=== PATIENT | male | born 1965 | race Two or more races ===

== ENCOUNTER 2018-08-30 09:08 | Inpatient (IN) | payer MEDICAID ==
[~2018-08-30] VITALS: Ht 172.7 cm; Wt 57.8 kg
[2018-08-30] MEDS ORDERED: IV NS 0.9% 1,000 ML BAG IV ONE (09:30)
--- NOTE | 2018-08-30 09:30 | NUR ---
patient presented to the ER, [facility] c/o tachycardia and CP. On room air, breathing evenly and unlabored. Connected to the monitor and pulse ox. kept comfortable, will continue to monitor accordingly.
[2018-08-30 09:34] LABS: BASOPHILS # (AUTO) 0.1 /CMM (0.0-0.2); BASOPHILS % (AUTO) 0.6 % (0.0-2.0); EOSINOPHILS % (AUTO) 0.9 % (0.0-6.0); HEMATOCRIT 33 % (39-51); LYMPHOCYTES # (AUTO) 1.3 /CMM (0.8-4.8); LYMPHOCYTES % (AUTO) 12.8 % (20.0-44.0); MEAN CORPUSCULAR HGB CONC 34 g/dl (31.0-36.0); MEAN CORPUSCULAR VOLUME 90 fL (80-96); MONOCYTES # (AUTO) 0.5 /CMM (0.1-1.30); MONOCYTES % (AUTO) 5.4 % (2.0-12.0); NEUTROPHILS % (AUTO) 80.3 % (43.0-81.0); PLATELET COUNT (AUTO) 470 /CMM (150-450); RED BLOOD CELL COUNT(AUTO) 3.63 MIL/uL (4.5-6.0)
[2018-08-30 09:40] LABS: CALCIUM, SERUM 8.6 mg/dL (8.5-10.1); CREATININE 0.5 mg/dL (0.6-1.3); POTASSIUM 4.3 mmol/L (3.5-5.1)
[2018-08-30 10:02] LABS: ALBUMIN 2.7 g/dL (3.4-5.0); BILIRUBIN,DIRECT 0.2 mg/dL (0.0-0.2); BILIRUBIN,TOTAL 0.8 mg/dL (0.2-1.0); TOTAL PROTEIN, SERUM 7.1 g/dL (6.4-8.2)
[2018-08-30] MEDS ORDERED: CEFTRIAXONE 1 G VIAL ONE (10:25)
[2018-08-30] MEDS ORDERED: CEFTRIAXONE 1GM BAG (ER ONLY) 50 ML IV ONE (10:30)
[2018-08-30] MEDS ORDERED: ENOX60DI SQ (11:05)
[2018-08-30] MEDS ORDERED: POLY17PO4 GT (11:05)
[2018-08-30] MEDS ORDERED: ASCO500T9 GT (11:05)
[2018-08-30] MEDS ORDERED: INSU100V7 SQ (11:05)
[2018-08-30] MEDS ORDERED: MAGN400O6 GT (11:05)
[2018-08-30] MEDS ORDERED: SERT25TA GT (11:05)
[2018-08-30] MEDS ORDERED: ATOR80TA GT (11:05)
[2018-08-30] MEDS ORDERED: INSU100V27 SQ (11:05)
[2018-08-30] MEDS ORDERED: CHLO118L4 MM (11:05)
[2018-08-30] MEDS ORDERED: ACET325T53 GT (11:05)
[2018-08-30] MEDS ORDERED: BLOO-668 IN (11:05)
[2018-08-30] MEDS ORDERED: ONDA4TAB5 GT (11:05)
[2018-08-30] MEDS ORDERED: LEVA1.2528 IH (11:05)
[2018-08-30] MEDS ORDERED: NA P133E RC (11:05)
[2018-08-30] MEDS ORDERED: MULT9LIQ6 GT (11:05)
[2018-08-30] MEDS ORDERED: DOCU50LI GT (11:05)
[2018-08-30] MEDS ORDERED: LACT-96 GT (11:05)
[2018-08-30] MEDS ORDERED: BISA10SU61 RC (11:05)
[2018-08-30] MEDS ORDERED: AMIN30LI2 GT (11:05)
[2018-08-30] MEDS ORDERED: SENN-168 GT (11:05)
[2018-08-30] MEDS ORDERED: WARF-58 GT (11:05)
[2018-08-30] MEDS ORDERED: MAG30ORA GT (11:05)
[2018-08-30] MEDS ORDERED: LIDO30AD10 TP (11:05)
[2018-08-30] MEDS ORDERED: HYDR-4384 GT (11:05)
[2018-08-30] MEDS ORDERED: SIME80TA15 GT (11:05)
[2018-08-30] MEDS ORDERED: GLUC1KIT IJ (11:05)
[2018-08-30] MEDS ORDERED: PANT40SU2 GT (11:05)
[2018-08-30] MEDS ORDERED: PROP15DR EACHEYE (11:05)
--- NOTE | 2018-08-30 11:33 | NUR ---
REQUESTED TELE BED FOR THIS PATIENT
--- NOTE | 2018-08-30 12:14 | NUR ---
patient wheeled via gurney accompanied by EMT and RN, in no apparent distress noted.
[2018-08-30] MEDS ORDERED: HYDROCODONE/APAP 5/325MG 1 EACH TABLET PO PRN (13:00)
[2018-08-30] MEDS ORDERED: ONDANSETRON HCL/PF 4 MG/2 ML VIAL IVP PRN (13:00)
[2018-08-30] MEDS ORDERED: Z GUARD REMEDY 2 OZ OINT TP PRN (13:00)
[2018-08-30] MEDS ORDERED: ACETAMINOPHEN 325 MG TABLET PO PRN (13:00)
[2018-08-30] MEDS ORDERED: ZOLPIDEM TARTRATE 5 MG TABLET PO PRN (13:00)
[2018-08-30] MEDS ORDERED: MAG HYDROX/AL HYDROX/SIMETH 30 ML UDC PO PRN (13:00)
[2018-08-30] MEDS ORDERED: MAGNESIUM HYDROXIDE 30 ML UDC PO PRN (13:00)
--- NOTE | 2018-08-30 13:00 | NUR ---
MS RN RECEIVED A NEW ADMISSION FROM ER,53 YEAR OLD MALE, CAME IN W/ DX OF SEPSIS,AWAKE,NON VERBAL PATIENT,UNDER RAUL TEZ, WILL MONITOR PATIENT'S CONDITION.
--- NOTE | 2018-08-30 14:30 | NUR ---
MS RN WAS SEEN BY TEZ AND TEAM W/ ADMITTING ORDERS AND CARRIED OUT.
[2018-08-30 16:00] VITALS: BP 146/81
[2018-08-30] MEDS: IV NS 0.9% 1,000 ML IV SCH (18:27)
--- NOTE | 2018-08-30 18:30 | NUR ---
ms rn bladder scanned, w/ 300ml inside, in and out cath done w/ 250 ml out, ua and culture sent to lab. will endorsed to shift commander for daina.
[2018-08-30 19:25] LABS: APPEARANCE,URINE SL CLOUDY (CLEAR); BILIRUBIN,URINE NEGATIVE (NEGATIVE); BLOOD, URINE 1+ Ery/uL (NEGATIVE); COLOR,URINE YELLOW (YELLOW); KETONES,URINE NEGATIVE (NEGATIVE); LEUKOCYTE ESTERASE ,URINE 1+ (NEGATIVE); NITRITE, URINE NEGATIVE (NEGATIVE); PROTEIN,URINE NEGATIVE (NEGATIVE); UGLUCOSE NEGATIVE (NEGATIVE)
[2018-08-30 20:31] VITALS: BP 153/98
--- NOTE | 2018-08-30 20:49 | NUR ---
TELE/RN ON INITIAL ROUND AT AROUND 1930 FOUND PATIENT TO BE AWAKE, ALERT, NON VERBAL BUT ABLE TO MOUTH WORD, NO C/O PAIN, NO DISTRESS NOTED, CALL LIGHT IN REACH. WILL MONITOR.
[2018-08-30] MEDS ORDERED: DEXTROSE 50%-WATER 50 ML DISP.SYRIN IV PRN (21:00)
[2018-08-30] MEDS ORDERED: BISACODYL SUPP (10 MG) 10 MG/SUPP.RECT SUPP.RECT RC PRN (21:00)
[2018-08-30] MEDS ORDERED: HYDROCODONE/APAP 5/325MG 1 EACH TABLET GT PRN (21:00)
[2018-08-30] MEDS ORDERED: ENOXAPARIN SODIUM 60 MG/0.6 ML DISP.SYRIN SQ SCH (21:00)
[2018-08-30] MEDS ORDERED: Medication Not On Formulary EA (Ondansetron Hcl (Zofran) 4 MG) GT PRN (21:00)
[2018-08-30] MEDS ORDERED: MAG HYDROX/AL HYDROX/SIMETH 30 ML UDC GT PRN (21:00)
[2018-08-30] MEDS ORDERED: MAGNESIUM HYDROXIDE 30 ML UDC GT PRN (21:00)
[2018-08-30] MEDS ORDERED: SIMETHICONE 80 MG TAB.CHEW GT PRN (21:00)
[2018-08-30 21:55] LABS: BACTERIA,URINE Few /HPF (None Seen)
[2018-08-30 21:56] LABS: SQUAMOUS EPITHELIAL CELL,UR Few /HPF (None Seen); WBC,URINE 21-50 /HPF (0-3)
[2018-08-30] MEDS ORDERED: BLOOD SUGAR DIAGNOSTIC 1 EACH STRIP IN SCH (22:00)
[2018-08-30] MEDS: HYDROCODONE/APAP 5/325MG 1 EACH TABLET GT PRN (22:02)
--- NOTE | 2018-08-30 22:12 | NUR ---
TELE/RN POSITIVE GT PLACEMENT NOTED PRIOR TO GIVING MED.
--- NOTE | 2018-08-30 22:16 | NUR ---
TELE/RN RECEIVED A CALL FROM PHARMACY TO CLARIFY LOVENOX ORDER. PHARMACY RECOMMENDS LOVENOX 40 MG DAILY FOR PROPHYLAXIS. CLARIFIED FROM [facility], RECEIVED ORDER OF LOVENOX 40 MG DAILY PER PHARMACY'S RECOMMENDATION. ORDER CARRIED OUT.
[2018-08-30] MEDS: SENNOSIDES 8.6 MG TABLET GT SCH (23:20)
[2018-08-30] MEDS: JEVITY 1.2 CAL 1,000 ML BOTTLE GT PRN (23:20)
[2018-08-30] MEDS: ENOXAPARIN SODIUM 40 MG/0.4 ML DISP.SYRIN SQ SCH (23:21)
[2018-08-31 00:16] VITALS: BP 144/92
[2018-08-31] MEDS: INSULIN REGULAR, HUMAN 100 UNIT/ML 3 ML VIAL SQ PRN ×5 (00:22→23:06)
[2018-08-31] MEDS: BLOOD SUGAR DIAGNOSTIC 1 EACH STRIP IN SCH ×5 (00:31→23:02)
--- NOTE | 2018-08-31 00:52 | NUR ---
TELE/RN PATIENT IS SLEEPING AT THIS TIME, AROUSABLE, APPEAR COMFORTABLE, NO SIGNS OF DISTRESS NOTED, CALL LIGHT IN REACH. WILL CONTINUE TO MONITOR.
[2018-08-31] MEDS: IV NS 0.9% 1,000 ML IV SCH ×2 (03:31→17:49)
--- NOTE | 2018-08-31 03:50 | NUR ---
TELE/RN BLADDER SCAN DONE, 45 MLS.
[2018-08-31 06:32] LABS: BASOPHILS % (AUTO) 0.5 % (0.0-2.0); EOSINOPHILS % (AUTO) 1.8 % (0.0-6.0); HEMATOCRIT 30 % (39-51); HEMOGLOBIN 10.4 g/dL (13.5-17.5); LYMPHOCYTES # (AUTO) 1.2 /CMM (0.8-4.8); LYMPHOCYTES % (AUTO) 18.3 % (20.0-44.0); MEAN CORPUSCULAR HGB CONC 34 g/dl (31.0-36.0); MEAN CORPUSCULAR VOLUME 89 fL (80-96); MONOCYTES # (AUTO) 0.4 /CMM (0.1-1.30); MONOCYTES % (AUTO) 6.3 % (2.0-12.0); NEUTROPHILS # (AUTO) 4.8 /CMM (1.8-8.9); NEUTROPHILS % (AUTO) 73.1 % (43.0-81.0); PLATELET COUNT (AUTO) 369 /CMM (150-450); RED BLOOD CELL COUNT(AUTO) 3.39 MIL/uL (4.5-6.0); WHITE BLOOD COUNT (AUTO) 6.5 K/uL (4.3-11.0)
--- NOTE | 2018-08-31 06:49 | NUR ---
MS/RN PATIENT STILL SLEEPING AT THIS TIME, AROUSES EASILY, APPEAR COMFORTABLE, HOB ELEVATED, GT FEEDING INFUSING, ALL NEEDS ATTENDED AT THIS TIME, WILL CONTINUE TO MONITOR.
[2018-08-31 06:50] LABS: ALBUMIN 2.3 g/dL (3.4-5.0); BILIRUBIN,DIRECT 0.2 mg/dL (0.0-0.2); BILIRUBIN,TOTAL 0.9 mg/dL (0.2-1.0); CALCIUM, SERUM 8.3 mg/dL (8.5-10.1); CREATININE 0.3 mg/dL (0.6-1.3); MAGNESIUM 1.5 mg/dL (1.8-2.4); PHOSPHORUS 3.2 mg/dL (2.5-4.9); POTASSIUM 3.6 mmol/L (3.5-5.1); TOTAL PROTEIN, SERUM 6.1 g/dL (6.4-8.2)
[2018-08-31 07:04] LABS: THYROID STIMULATING HORMONE 1.63 uIU/mL (0.358-3.74)
[2018-08-31] MEDS ORDERED: PANTOPRAZOLE 40 MG TABLET.DR PO SCH (07:30)
--- NOTE | 2018-08-31 07:45 | NUR ---
RN OPENING NOTES PT AWAKE AND ORIENTED, NONVERBAL. FAMILY AT BEDSIDE. NO COMPLAINTS OF PAIN, DISTRESS OR SOB AT THIS TIME. PT TELE MONITORED AT SINUS RHYTHM RATE 92 WITH OCCASIONAL PVCS. PT HAS GT FEEDING RUNNING JEVITY @60 ML/HR. PT TOLERATING WELL. IV RUNNING NS@75ML/HR. SAFETY PRECAUTIONS IN PLACE, BED IN LOWEST LOCKED POSITION, X2 SIDE RAILS UP AND CALL LIGHT WITHIN REACH. WILL CONTINUE TO MONITOR.
[2018-08-31 08:00] VITALS: BP 151/96
[2018-08-31] MEDS: SERTRALINE HCL 25 MG TABLET GT SCH (08:44)
[2018-08-31] MEDS: ASCORBIC ACID 500 MG TABLET GT SCH ×2 (08:44→16:18)
[2018-08-31] MEDS: LIDOCAINE 5% (PATCH) 1 EA PATCH TP SCH (08:47)
[2018-08-31] MEDS: PROSOURCE / PROSTAT (PYXIS) 30 ML UDC GT SCH (08:47)
[2018-08-31] MEDS: PANTOPRAZOLE 40 MG/PACK PACK GT SCH ×2 (08:47→16:18)
[2018-08-31] MEDS: CHLORHEXIDINE GLUCONATE 15 ML UDC MM SCH ×2 (08:47→16:17)
[2018-08-31] MEDS: POLYETHYLENE GLYCOL 3350 17 GM POWD.PACK GT SCH (08:47)
[2018-08-31] MEDS: DOCUSATE SODIUM LIQ 100 MG/10 ML UDC GT SCH ×2 (08:47→16:18)
[2018-08-31] MEDS: ENOXAPARIN SODIUM 40 MG/0.4 ML DISP.SYRIN SQ SCH (08:48)
[2018-08-31] MEDS ORDERED: DOCUSATE SODIUM 100 MG CAPSULE PO SCH (09:00)
[2018-08-31] MEDS ORDERED: MULTIVITAMIN LIQ 5 ML UDC GT SCH (09:00)
[2018-08-31] MEDS ORDERED: CHLORHEXIDINE GLUCONATE MM SCH (09:00)
[2018-08-31] MEDS ORDERED: Medication Not On Formulary EA (Multivit &Minerals/Ferrous Fum (Multivitamin Liquid) 5 M GT SCH (09:00)
[2018-08-31] MEDS: MULTIVITAMINS,THERAGRAN 1 UDTAB TABLET GT SCH (09:13)
[2018-08-31] MEDS: CEFTRIAXONE 1 G in IV D5W 50 ML IV SCH (10:17)
[2018-08-31] MEDS: Magnesium 1GM/D5W 100ML PREMIX 100 ML IV SCH ×2 (11:44→12:49)
[2018-08-31] MEDS: ALBUTEROL FS 2.5 MG/0.5 ML VIAL.NEB NEB SCH ×4 (11:57→23:30)
[2018-08-31] MEDS ORDERED: WARFARIN SODIUM 5 MG TABLET GT SCH (13:00)
[2018-08-31] MEDS ORDERED: HYDROGEL DRESSING 90 GM TUBE TP PRN (16:00)
[2018-08-31] MEDS: HYDROCODONE/APAP 5/325MG 1 EACH TABLET GT PRN (16:18)
--- NOTE | 2018-08-31 19:00 | NUR ---
RN CLOSING NOTES PT AWAKE AND ORIENTED, NONVERBAL. NO COMPLAINTS OF PAIN, DISTRESS OR SOB AT THIS TIME. PT HAS GT FEEDING RUNNING JEVITY @60 ML/HR. PT TOLERATING WELL. IV RUNNING NS@75ML/HR. SAFETY PRECAUTIONS IN PLACE, BED IN LOWEST LOCKED POSITION, X2 SIDE RAILS UP AND CALL LIGHT WITHIN REACH. WILL ENDORSE TO CATALOGUE CLERK NURSE FOR CONTINUITY OF CARE.
[2018-08-31 20:00] VITALS: BP 147/95
--- NOTE | 2018-08-31 21:50 | NUR ---
MS/RN ON INITIAL ROUND AT 1930, PATIENT WAS AWAKE, ALERT, NON VERBAL, APPEAR COMFORTABLE, NO DISTRESS NOTED, GT CLAMPED AT THIS TIME, CALL LIGHT IN REACH, FALL PRECAUTION, CALL LIGHT IN REACH. WILL MONITOR.
[2018-08-31] MEDS ORDERED: INSULIN GLARGINE, 100 UNIT/ML CARTRIDGE SQ SCH (22:00)
[2018-08-31] MEDS: NYSTATIN TOP POWDER 15 GM BOTTLE TP SCH (23:00)
[2018-08-31] MEDS ORDERED: ATORVASTATIN 40 MG TABLET PO SCH (23:00)
[2018-08-31] MEDS: Z GUARD REMEDY 2 OZ OINT TP SCH (23:01)
[2018-08-31] MEDS: SENNOSIDES 8.6 MG TABLET GT SCH (23:02)
[2018-08-31] MEDS: HYDROGEL DRESSING 90 GM TUBE TP SCH (23:10)
[2018-08-31] MEDS: JEVITY 1.2 CAL 1,000 ML BOTTLE GT PRN (23:38)
--- NOTE | 2018-09-01 02:15 | NUR ---
MS/RN PATIENT IS SLEEPING AT THIS TIME, AROUSABLE, APPEAR COMFORTABLE, NO DISTRESS NOTED, CALL LIGHT IN REACH. WILL CONTINUE TO MONITOR.
[2018-09-01] MEDS: ALBUTEROL FS 2.5 MG/0.5 ML VIAL.NEB NEB SCH ×3 (03:30→11:25)
[2018-09-01] MEDS: INSULIN REGULAR, HUMAN 100 UNIT/ML 3 ML VIAL SQ PRN ×2 (06:36→11:16)
[2018-09-01] MEDS: BLOOD SUGAR DIAGNOSTIC 1 EACH STRIP IN SCH ×2 (06:36→11:08)
[2018-09-01 06:38] LABS: CALCIUM, SERUM 8.7 mg/dL (8.5-10.1); CREATININE 0.3 mg/dL (0.6-1.3); MAGNESIUM 1.7 mg/dL (1.8-2.4)
[2018-09-01 06:40] LABS: BASOPHILS % (AUTO) 0.4 % (0.0-2.0); HEMATOCRIT 32 % (39-51); HEMOGLOBIN 10.9 g/dL (13.5-17.5); LYMPHOCYTES # (AUTO) 1.1 /CMM (0.8-4.8); LYMPHOCYTES % (AUTO) 14.8 % (20.0-44.0); MEAN CORPUSCULAR HGB CONC 34 g/dl (31.0-36.0); MEAN CORPUSCULAR VOLUME 88 fL (80-96); MONOCYTES # (AUTO) 0.5 /CMM (0.1-1.30); NEUTROPHILS # (AUTO) 5.9 /CMM (1.8-8.9); NEUTROPHILS % (AUTO) 77.8 % (43.0-81.0); PLATELET COUNT (AUTO) 402 /CMM (150-450); RED BLOOD CELL COUNT(AUTO) 3.65 MIL/uL (4.5-6.0); WHITE BLOOD COUNT (AUTO) 7.5 K/uL (4.3-11.0)
--- NOTE | 2018-09-01 07:01 | NUR ---
MS/RN PATIENT IS AWAKE AND ALERT THIS TIME, APPEAR COMFORTABLE, NO SIGNS OF DISTRESS NOTED, HOB ELEVATED, GT FEEDING INFUSING, ALL NEEDS ATTENDED AT THIS TIME, WILL CONTINUE TO MONITOR.
--- NOTE | 2018-09-01 07:53 | NUR ---
RN OPENING NOTES PT AWAKE AND ORIENTED, NONVERBAL. NO COMPLAINTS OF PAIN, DISTRESS OR SOB AT THIS TIME. PT HAS GT FEEDING RUNNING JEVITY @60 ML/HR. PT TOLERATING WELL. IV RUNNING NS@75ML/HR. SAFETY PRECAUTIONS IN PLACE, BED IN LOWEST LOCKED POSITION, X2 SIDE RAILS UP AND CALL LIGHT WITHIN REACH. WILL CONTINUE TO MONITOR.
[2018-09-01 08:00] VITALS: BP 148/90
--- NOTE | 2018-09-01 08:11 | NUR ---
WOUND CARE CONSULT WOUND CARE RECEIVED CONSULT FOR SACRAL AND PERINEAL EXCORIATION. WOUND CARE WILL DEFER CONSULT AND TREATMENT PLANS TO PLASTIC SURGICAL TEAM WHO ARE CURRENTLY FOLLOWING THIS PATIENT. PATIENT WITH SERAFIN AT 13, ALL PRESSURE ULCER PREVENTION MEASURES ARE NOTED TO BE IN PLACE AT THIS TIME. WILL SEE PRN.
[2018-09-01] MEDS: ASCORBIC ACID 500 MG TABLET GT SCH (08:46)
[2018-09-01] MEDS: LIDOCAINE 5% (PATCH) 1 EA PATCH TP SCH (08:46)
[2018-09-01] MEDS: POLYETHYLENE GLYCOL 3350 17 GM POWD.PACK GT SCH (08:46)
[2018-09-01] MEDS: PANTOPRAZOLE 40 MG/PACK PACK GT SCH (08:46)
[2018-09-01] MEDS: CHLORHEXIDINE GLUCONATE 15 ML UDC MM SCH (08:46)
[2018-09-01] MEDS: SERTRALINE HCL 25 MG TABLET GT SCH (08:46)
[2018-09-01] MEDS: DOCUSATE SODIUM LIQ 100 MG/10 ML UDC GT SCH (08:46)
[2018-09-01] MEDS: MULTIVITAMINS,THERAGRAN 1 UDTAB TABLET GT SCH (08:46)
[2018-09-01] MEDS: PROSOURCE / PROSTAT (PYXIS) 30 ML UDC GT SCH (08:47)
[2018-09-01] MEDS: NYSTATIN TOP POWDER 15 GM BOTTLE TP SCH (08:48)
[2018-09-01] MEDS: Z GUARD REMEDY 2 OZ OINT TP SCH (08:48)
[2018-09-01] MEDS: HYDROGEL DRESSING 90 GM TUBE TP SCH (08:48)
[2018-09-01] MEDS: CEFTRIAXONE 1 G in IV D5W 50 ML IV SCH (11:07)
[2018-09-01] MEDS: IV NS 0.9% 1,000 ML IV SCH (11:09)
[2018-09-01] MEDS ORDERED: CEFT1VIA15 IV (12:06)
--- NOTE | 2018-09-01 13:50 | NUR ---
LENS SHAPER GRINDER NOTES PT STABLE AT DISCHARGE. FAMILY AT BEDSIDE. REPORT GIVEN TO KRANTHI AT [facility]. IV AND ID BAND REMOVED BEFORE DISCHARGE. ALL PAPERWORK EXPLAINED, SIGNED, COPIED, AND GIVEN TO THE PATIENT AT DISCHARGE. PICTURES TAKEN PRIOR TO DISCHARGE. PT LEFT UNIT VIA GURNEY AND TRANSPORTED BY [facility] AT 1350.
== END 2018-09-01 13:50 | DRG 463 ==
LOC: ER 09:08 → TELE 12:11 → MED 08-31 10:25
PROVIDERS: ADMIT Nurse Practitioner Acute Care; ATTEND Nurse Practitioner Acute Care
DX: N39.0 Urinary tract infection, site not specified (principal); L89.150 Pressure ulcer of sacral region, unstageable; E44.0 Moderate protein-calorie malnutrition; E11.65 Type 2 diabetes mellitus with hyperglycemia; E88.09 Other disorders of plasma-protein metabolism, not elsewhere classified; D47.3 Essential (hemorrhagic) thrombocythemia; D64.9 Anemia, unspecified; E78.5 Hyperlipidemia, unspecified; I10 Essential (primary) hypertension; K21.9 Gastro-esophageal reflux disease without esophagitis; K57.90 Diverticulosis of intestine, part unspecified, without perforation or abscess without bleeding; K59.00 Constipation, unspecified; Z79.4 Long term (current) use of insulin; I69.354 Hemiplegia and hemiparesis following cerebral infarction affecting left non-dominant side; L98.8 Other specified disorders of the skin and subcutaneous tissue; Z93.1 Gastrostomy status; Z68.1 Body mass index [BMI] 19.9 or less, adult
CPT/HCPCS: 36415; 71045-TC; 74018; 80048-TC; 80061-TC; 80076-TC; 81000-TC; 82962-TC; 83605-TC; 83735-TC; 84100-TC; 84443-TC; 84484-TC; 85025-TC; 85610-TC; 85730-TC; 87040-TC; 87070-TC; 87081-TC; 87086-TC; 94760-TC; A6248; G0378; J0696; J1650; J1815; J3475; J7030; J7060

== ENCOUNTER 2024-09-12 09:35 | Emergency (ER) | payer MEDICAID, OTHER ==
[~2024-09-12] VITALS: Ht 172.7 cm; Wt 63.5 kg
[~2024-09-12 09:35] MED LIST: ACET325T53 GT; AMIN30LI2 GT; ASCO-352 GT; ATOR80TA PO; BISA10SU61 RC; BLOO-668 IN; CEFT1VIA15 IV; CHLO118L4 MM; DOCU50LI GT; ENOX60DI SQ; GLUC1KIT IJ; HYDR-4384 GT; HYDR-4384 PO; INSU100V27 SQ; INSU100V7 SQ; LACT-96 GT; LEVA1.2528 IH; LIDO30AD10 TP; MAG30ORA PO; MAGN400O6 PO; MULT9LIQ6 GT; NA P133E RC; ONDA4TAB5 GT; PANT40SU2 GT; POLY17PO4 PO; PROP15DR EACHEYE; SENN-261 GT; SERT25TA PO; SIME80TA15 GT; WARF-58 GT
[2024-09-12] MEDS ORDERED: ONDANSETRON HCL/PF 4 MG/2 ML VIAL ONE (09:52)
[2024-09-12] MEDS ORDERED: MORPHINE SULFATE INJ 4 MG/ML DISP.SYRIN ONE (09:53)
[2024-09-12 09:58] LABS: BASOPHILS % (AUTO) 0.2 % (0.0-2.0); EOSINOPHILS # (AUTO) 0.4 K/uL (0.0-0.7); EOSINOPHILS % (AUTO) 3.4 % (0.0-6.0); HEMATOCRIT 48 % (39-51); LYMPHOCYTES # (AUTO) 1.6 K/uL (0.8-4.8); LYMPHOCYTES % (AUTO) 14.7 % (20.0-44.0); MEAN CORPUSCULAR HEMOGLOBIN 28 PG (26.0-33.0); MEAN CORPUSCULAR HGB CONC 33 g/dl (31.0-36.0); MEAN CORPUSCULAR VOLUME 85 fL (80-96); MONOCYTES # (AUTO) 0.6 K/uL (0.1-1.30); MONOCYTES % (AUTO) 5.6 % (2.0-12.0); NEUTROPHILS # (AUTO) 8.5 K/uL (1.8-8.9); NEUTROPHILS % (AUTO) 76.1 % (43.0-81.0); PLATELET COUNT (AUTO) 234 K/uL (150-450); RED BLOOD CELL COUNT(AUTO) 5.65 MIL/uL (4.5-6.0); RED CELL DISTRIBUTION WIDTH 14.1 % (11.5-15.0); WHITE BLOOD COUNT (AUTO) 11.2 K/uL (4.3-11.0)
[2024-09-12] MEDS: ONDANSETRON HCL/PF 4 MG/2 ML VIAL IVP ONE (10:00)
[2024-09-12] MEDS: IV NS 0.9% 500 ML BAG IV ONE (10:00)
[2024-09-12] MEDS: MORPHINE SULFATE INJ 2 MG/ML DISP.SYRIN IV ONE (10:05)
[2024-09-12] MEDS ORDERED: MULT-213 PO (10:19)
[2024-09-12] MEDS ORDERED: RIVA10TA PO (10:19)
[2024-09-12] MEDS ORDERED: ZINC56.713 TP (10:19)
[2024-09-12] MEDS ORDERED: MEMA10TA56 PO (10:19)
[2024-09-12] MEDS ORDERED: AMLO-213 PO (10:19)
[2024-09-12] MEDS ORDERED: ACET325T53 PO (10:19)
[2024-09-12] MEDS ORDERED: POLY15DR40 EACHEYE (10:19)
[2024-09-12] MEDS ORDERED: GABA-532 PO (10:19)
[2024-09-12] MEDS ORDERED: ACET-637 PO (10:19)
[2024-09-12] MEDS ORDERED: INSU100V3 SQ (10:19)
[2024-09-12 10:57] LABS: CREATININE 0.7 mg/dL (0.6-1.3); POTASSIUM 3.5 mmol/L (3.5-5.1)
[2024-09-12 11:05] LABS: ALBUMIN 3.2 g/dL (3.4-5.0); BILIRUBIN,DIRECT 0.3 mg/dL (0.0-0.2); BILIRUBIN,TOTAL 1.4 mg/dL (0.2-1.0); TOTAL PROTEIN, SERUM 7.5 g/dL (6.4-8.2)
[2024-09-12 11:12] LABS: APPEARANCE,URINE CLEAR (CLEAR); BILIRUBIN,URINE Negative (NEGATIVE); BLOOD, URINE Trace-intact Ery/uL (NEGATIVE); COLOR,URINE YELLOW (YELLOW); KETONES,URINE Negative (NEGATIVE); LEUKOCYTE ESTERASE ,URINE Negative (NEGATIVE); PROTEIN,URINE Negative (NEGATIVE); UGLUCOSE Negative (NEGATIVE)
[2024-09-12 11:13] LABS: NITRITE, URINE NEGATIVE (NEGATIVE)
[2024-09-12 11:29] LABS: ADD URINE CULTURE NO; BACTERIA,URINE Rare /HPF (None Seen); RBC,URINE 0-2 /HPF (0-2); SQUAMOUS EPITHELIAL CELL,UR None Seen /HPF (None Seen); WBC,URINE 0-2 /HPF (0-3)
[2024-09-12 12:21] VITALS: BP 138/80; TEMP 98.6; O2SAT 98
== END 2024-09-12 12:22 | disposition home or self-care (01) ==
LOC: ER 09:40
DX: R10.31 Right lower quadrant pain (principal); M25.559 Pain in unspecified hip; I10 Essential (primary) hypertension; E11.9 Type 2 diabetes mellitus without complications; F32.A Depression, unspecified; Z74.01 Bed confinement status; Z79.899 Other long term (current) drug therapy; Z86.73 Personal history of transient ischemic attack (TIA), and cerebral infarction without residual deficits
CPT/HCPCS: 99285; 74176; 96374; 96361; 96375; 85025; 80048; 87086; 83690; 80076; 81001; 36415; J2270; J2405; J7040; A4223